=== PATIENT | female | born 1960 | race African-American/Black ===

== ENCOUNTER 2022-04-24 16:56 | Emergency (ER) | payer OTHER ==
[2022-04-24 17:30] VITALS: BP 120/84; PULSE 90; TEMP 98.4; BMI 29.2
== END 2022-04-24 20:00 | disposition home or self-care (01) ==
LOC: JERFT 16:56 → JER 16:56 → JERFT 20:00
DX: S05.02XA Injury of conjunctiva and corneal abrasion without foreign body, left eye, initial encounter (principal); Y99.8 Other external cause status
CPT/HCPCS: 99283-25